=== PATIENT | female | born 1960 | race Caucasian/White ===

== ENCOUNTER 2017-12-06 18:42 | Emergency (ER) | payer BC ==
[2017-12-06 20:13] VITALS: BP 111/60
--- NOTE | 2017-12-06 20:33 | UC ---
FLU HPI - HPI Summary HPI Summary: Pt here w/ flu-like sx today - body aches, chills, subjective fever and mild cough w/ ST. Had rhinorrhea past 2 days leading up to this. Denies N/V/D, ab pain, skin changes. Has not taken anything for sx yet - just wants to get checked for influenza as she's going on a cruise in 3 days. Imms are [employer] - works at [employer]. - History of Current Complaint Chief Complaint: UCGeneralIllness Stated Complaint: FLU LIKE Time Seen by Provider: 12/06/17 20:15 Hx Obtained From: Patient Hx Last Menstrual Period: 01/26/15 Pain Intensity: 5 - Allergy/Home Medications Allergies/Adverse Reactions: Allergies Allergy/AdvReac Type Severity Reaction Status Date / Time bee venom protein (honey bee) Allergy Hives Verified 12/06/17 20:09 Sulfa (Sulfonamide Allergy Hives Verified 12/06/17 20:09 Antibiotics) Home Medications: Home Medications NK [No Home Medications Reported] 12/06/17 [History Confirmed 12/06/17] PMH/Surg Hx/FS Hx/Imm Hx Previously Healthy: Yes - Surgical History Surgical History: Yes Surgery Procedure, Year, and Place: mensicus repair - Family History Known Family History: Positive: Other - DJD - Social History Occupation: Employed Full-time Lives: With Family Alcohol Use: Occasionally Substance Use Type: None Smoking Status (MU): Former Smoker Review of Systems Constitutional: Fever, Chills Skin: Negative Eyes: Negative ENT: Sore Throat, Nasal Discharge Respiratory: Cough Cardiovascular: Negative Gastrointestinal: Negative Genitourinary: Negative Musculoskeletal: Myalgia Neurological: Headache Psychological: Negative Is Patient Immunocompromised?: No All Other Systems Reviewed And Are Negative: Yes Physical Exam Triage Information Reviewed: Yes Appearance: Well-Appearing, No Pain Distress, Well-Nourished Vital Signs: Initial Vital Signs Temp 99.2 F 12/06/17 20:05 Pulse 82 12/06/17 20:05 Resp 16 12/06/17 20:05 BP 111/60 12/06/17 20:05 Pulse Ox 98 12/06/17 20:05 Vital Signs Reviewed: Yes Eye Exam: Normal Eyes: Positive: Conjunctiva Clear ENT Exam: Normal ENT: Positive: Normal ENT inspection, Hearing grossly normal, Pharynx normal, TMs normal, Sinus tenderness. Negative: Nasal congestion, Nasal drainage, Tonsillar swelling, Tonsillar exudate Neck exam: Normal Neck: Positive: Supple, Nontender, No Lymphadenopathy Respiratory Exam: Normal Respiratory: Positive: Lungs clear, Normal breath sounds. Negative: Crackles, Rhonchi, Stridor, Wheezing Cardiovascular Exam: Normal Cardiovascular: Positive: RRR, No Murmur Abdominal Exam: Normal Abdomen Description: Positive: Nontender, No Organomegaly, Soft Bowel Sounds: Positive: Present Musculoskeletal Exam: Normal Musculoskeletal: Positive: Strength Intact, ROM Intact Neurological Exam: Normal Neurological: Positive: Alert Psychological Exam: Normal Skin Exam: Normal Flu Course/Dx - Course Course Of Treatment: Neg flu swab. Requesting acetaminophen prior to d/c - Differential Dx/Diagnosis Provider Diagnoses: Viral URI Discharge - Discharge Plan Condition: Stable Disposition: HOME Patient Education Materials: Upper Respiratory Infection (ED) Forms: *Work Release Referrals: Ernie Pan MD [Primary Care Provider] - Additional Instructions: Perform nasal wash/netti pot 2 x day with 8 ounces of warm water + 1/4 teaspoon of salt or saline nasal spray as needed Perform throat gargles with warm salt water as needed Drink 60+ ounces of water daily Sleep 8+ hours per night Avoid Dairy and sugar Drink hot herbal/decaf tea with lemon & honey Drink chicken broth (preferably organic, free range chicken) Use a humidifier in your house, but especially near bed at night. You may also keep home temperature at 68F or less. Try a facial steam with or without eucalyptus essential oil or Cheko's vapor rub for decongestion. Cough drops Alternate ibuprofen and acetaminophen as needed for fever, pain Avoid smoke, candles, perfumes/colonge, air fresheners, scented lotions, etc Consider taking Vitamin D3 5,000iu and Vitamin C 1,000mg every day during illness
[2017-12-06] MEDS ORDERED: Acetaminophen TAB* 325 MG PO ONE (20:41)
== END 2017-12-06 20:52 | disposition home or self-care (01) ==
LOC: UCCORT 18:42
DX: J06.9 Acute upper respiratory infection, unspecified (principal); Z88.2 Allergy status to sulfonamides; Z91.030 Bee allergy status; Z87.891 Personal history of nicotine dependence
CPT/HCPCS: 87502; 99212; A9270-GY; G0463